=== PATIENT | male | born 1995 | race Caucasian/White ===

== ENCOUNTER 2018-01-24 15:10 | Emergency (ER) | payer OTHER ==
[2018-01-24] MEDS ORDERED: Ondansetron ODT TAB* 4 MG PO ONE (15:48)
[2018-01-24] MEDS ORDERED: NS 0.9% 1000 ML* 1,000 ML IV ONE (15:48)
[2018-01-24] MEDS ORDERED: Famotidine TAB* 20 MG PO ONE (15:48)
--- NOTE | 2018-01-24 16:07 | ED ---
Abdominal Pain/Male - HPI Summary HPI Summary: This patient is a 22 year old M presenting to [facility] with a chief complaint of diarrhea since Friday. Today sx the worst theyve been. Pt endorses he defecates immediately after any intake 01/23/18 and today. He endorses abd discomfort. Pt denies taking ABx recently, hematochezia, urinary sx. 9 days ago he sprained ankle, and takes 600 mg ibuprofen, which he stopped taking on Friday01/21/18. Pt endorses [place] but not drinking the water. Pt endorses abd discomfort and taking Pepto-Bismol. Pt states he doesnt smoke or drink. - History of Current Complaint Chief Complaint: EDGeneral Stated Complaint: DIARHEA Time Seen by Provider: 01/24/18 15:40 Hx Obtained From: Patient Onset/Duration: Gradual Onset, Lasting Days Timing: Constant Severity Initially: Mild Severity Currently: Moderate Pain Intensity: 2 Pain Scale Used: 0-10 Numeric Location: Diffuse Radiates: No Character: Other: - "discomfort" Aggravating Factor(s): Food Alleviating Factor(s): Nothing Associated Signs And Symptoms: Negative: Blood in Stool, Urinary Symptoms - Allergies/Home Medications Allergies/Adverse Reactions: Allergies Allergy/AdvReac Type Severity Reaction Status Date / Time clarithromycin [From Biaxin] Allergy Unknown Verified 01/24/18 15:28 Reaction Details Penicillins Allergy Unknown Verified 01/24/18 15:28 Reaction Details PMH/Surg Hx/FS Hx/Imm Hx Cardiovascular History: Denies: Hx Deep Vein Thrombosis Respiratory History: Denies: Hx Lung Cancer GI History: Denies: Hx Cirrhosis History: Denies: Hx Dialysis Musculoskeletal History: Reports: Hx Orthopedic Injury - sprained ankle 01/16/18 Sensory History: Reports: Hx Contacts or Glasses Opthamlomology History: Reports: Hx Contacts or Glasses EENT History: Denies: Hx Deafness Infectious Disease History: No Infectious Disease History: Denies: Traveled Outside the [place] in Last 30 Days - Family History Known Family History: Negative: Blood Disorder - Social History Occupation: Student Alcohol Use: None Substance Use Type: Reports: None Hx Tobacco Use: No Smoking Status (MU): Never Smoked Tobacco Review of Systems Negative: Fever Positive: Abdominal Pain, Diarrhea Negative: dysuria, frequency, hematuria, pain, urgency Positive: Arthralgia - right ankle, Decreased ROM All Other Systems Reviewed And Are Negative: Yes Physical Exam - Summary Physical Exam Summary: Appearance: Well appearing, no pain distress Skin: warm, dry, reflects adequate perfusion Head/face: normal Eyes: EOMI, CATHY ENT: normal Neck: supple, non-tender Respiratory: CTA, breath sounds present Cardiovascular: RRR, pulses symmetrical Abdomen: non-tender, soft Bowel Sounds: present Musculoskeletal: fx boot on right foot, other ROM normal Neuro: normal, sensory motor intact, A&Ox3 Triage Information Reviewed: Yes Vital Signs On Initial Exam: Initial Vitals Temp Pulse Resp BP Pulse Ox 98.8 F 90 16 178/84 99 01/24/18 15:15 01/24/18 15:15 01/24/18 15:15 01/24/18 15:15 01/24/18 15:15 Vital Signs Reviewed: Yes Diagnostics - Vital Signs Vital Signs Temp Pulse Resp BP Pulse Ox 01/24/18 15:15 98.8 F 90 16 178/84 99 - Laboratory Result Diagrams: 01/24/18 16:14 01/24/18 16:14 Lab Statement: Any lab studies that have been ordered have been reviewed, and results considered in the medical decision making process. Abdominal Pain Fem Course/Dx - Course Course Of Treatment: Young college student with diarrheal illness not apparently related to any food exposures. No environmental exposures or recent camping. The patient actually had a formed stool while here. Treat symptomatically. Hydrated here. Follow-up with [facility]. - Diagnoses Provider Diagnoses: Acute gastroenteritis Discharge - Sign-Out/Discharge Documenting (check all that apply): Patient Departure - discharge - Discharge Plan Condition: Improved Disposition: HOME Prescriptions: Ondansetron [Zofran Odt] 4 mg PO TID PRN #12 tab.rapdis PRN Reason: Nausea Patient Education Materials: Gastroenteritis (ED) Referrals: [facility] [Provider Group] Additional Instructions: Drink plenty of fluids. Take Imodium as needed. Return with fever, blood in the vomitus or diarrhea, worse or other concerns as discussed. - Billing Disposition and Condition Condition: IMPROVED Disposition: Home
[2018-01-24 16:27] LABS: ABS Basophils 0.1 10^3/ul (0-0.2); ABS Eosinophils 0 10^3/ul (0-0.6); ABS Lymphocytes 1.6 10^3/ul (1.0-4.8); ABS Monocytes 0.5 10^3/ul (0-0.8); ABS Neutrophils 3.7 10^3/ul (1.5-7.7); ABS Nucleated RBC 0 10^3/ul; Eosinophil % 0.8 % (0-6); Hematocrit 42 % (42-52); Hemoglobin 13.8 g/dl (14.0-18.0); Lymphocyte % 26.6 % (25-47); Mean Corpuscular HGB Conc 33 g/dl (31-36); Mean Corpuscular Hemoglobin 22 pg (27-31); Mean Corpuscular Volume 67 fL (80-94); Mean Platelet Volume 7.8 um3 (7.4-10.4); Nucleated Red Blood Cells % 0.1; Platelet Count 295 10^3/ul (150-450); Red Blood Count 6.21 10^6/ul (4.00-5.40); Red Cell Distribution Width 15 % (10.5-15); White Blood Count 5.9 10^3/ul (3.5-10.8)
[2018-01-24 16:43] LABS: EGFR Non-African American 133.5 (>60)
[2018-01-24 17:02] VITALS: BP 149/90
== END 2018-01-24 17:00 | disposition home or self-care (01) ==
LOC: ED 15:10
DX: K52.9 Noninfective gastroenteritis and colitis, unspecified (principal); Z88.1 Allergy status to other antibiotic agents; Z88.0 Allergy status to penicillin
CPT/HCPCS: 36415; 80048; 85025; 85060; 96360; 99282; A9270-GY